=== PATIENT | female | born 1935 | race Caucasian/White ===

== ENCOUNTER 2023-07-29 16:25 | Emergency (ER) | payer MEDICARE ==
[~2023-07-29] VITALS: Ht 154.9 cm; Wt 52.2 kg
[2023-07-29 17:09] VITALS: RESP 18; TEMP 97
[2023-07-29 18:29] LABS: BILIRUBIN,URINE NEGATIVE (Neg); CLARITY,URINE CLEAR (Clear); COLOR,URINE YELLOW (Yellow); GLUCOSE, URINE NEGATIVE (Neg); KETONES,URINE NEGATIVE (Neg); LEUKOCYTE ESTERASE ,URINE NEGATIVE (Neg); NITRITES, URINE NEGATIVE (Neg); OCCULT BLOOD,URINE NEGATIVE (Neg); PROTEIN,URINE NEGATIVE (Neg); UROBILINOGEN,URINE 0.2 E.U/dL (0.2-1.0)
[2023-07-29 18:56] LABS: UA COLLECTION TYPE VOIDED
[2023-07-29] MEDS ORDERED: TRAZ-251 PO (19:29)
[2023-07-29 19:34] VITALS: BP 133/87; PULSE 70; O2SAT 98
== END 2023-07-29 19:39 | disposition home or self-care (01) ==
LOC: ER 16:27
DX: F03.90 Unspecified dementia, unspecified severity, without behavioral disturbance, psychotic disturbance, mood disturbance, and anxiety (principal); G47.00 Insomnia, unspecified; F99 Mental disorder, not otherwise specified
CPT/HCPCS: 81003; 99283

== ENCOUNTER 2025-01-11 11:41 | Outpatient (CLI) | payer MEDICARE, BC ==
[~2025-01-11 11:41] MED LIST: TRAZ-251 PO
== END 2025-01-11 23:59 | disposition home or self-care (01) ==
LOC: RAD 11:41
PROVIDERS: ATTEND Family Medicine
DX: R13.12 Dysphagia, oropharyngeal phase (principal); R05.9 Cough, unspecified
CPT/HCPCS: 74230